=== PATIENT | female | born 1960 | race Caucasian/White ===

== ENCOUNTER → 2025-01-25 | Outpatient (CLI) | payer MEDICAID ==
[~2025-01-25] MED LIST: AMIT50TA12 PO; ATOR-507 PO; BACL10TA PO; CLON0.2T PO; DULO60CA41 PO; GABA-339 PO; HYDR-4798 PO; LOSA25TA5 PO; OMEP20TA PO; ZOLP5TAB5 PO
[2025-01-25] MEDS: REGADENOSON 0.4 MG/5 ML SYRG IV ONE ×2 (12:51→13:03)
--- NOTE | 2025-01-26 13:32 | DVHSR ---
APPROVED REPORT Exam: Nuclear Stress Test BMI: 0 Stress Test Details HR Max Heart Rate (APMHR): 156.161582 bpm Target HR (85% APMHR): 132.546756 bpm BP ECG Stress ECG Conclusion lvef 71% no severe ischemia noted non speciific ST T changes on ecg portion of stress GI artifact noted NM EXAM: Myocardial Perfusion REST/STRESS Imaging Protocol: Rest Tc-99m/Stress Tc-99m 1 day Resting Data Rest SPECT myocardial perfusion imaging was performed in supine position 60 minutes following the int ravenous injection of 12 mCi of Tc-99m Sestamibi. Time of rest injection: 1150 Time of rest imagin Administration Route: IV Administration Site: Left Hand Pharmacologic Stress Pharmacologic stress test was performed by injecting Regadenoson 0.4 mg IV push followed by the intra venous injection of 31 mCi of Tc-99m Sestamibi. Time of stress injection: 1304 Time of stress imagin Administration Route: IV Administration Site: Left Hand Gated Stress SPECT was performed 60 minutes after stress injection. The images were gated to evaluate regional wall motion and calculate left ventricular ejection fracti on. Stress only was performed in the Supine position. Nuclear Conclusion Nuclear Findings: negative for ischemia lvef 71% no severe ischemia noted non speciific ST T changes on ecg portion of stress GI artifact noted
== END | disposition home or self-care (01) ==
LOC: XYW 11:41
PROVIDERS: ATTEND Internal Medicine
DX: Z01.810 Encounter for preprocedural cardiovascular examination (principal)
CPT/HCPCS: 78452; 93017; A9500; J2785